=== PATIENT | female | born 1995 | race Two or more races ===

== ENCOUNTER 2024-03-01 11:53 | Inpatient (IN) ==
[2024-03-01] MEDS ORDERED: Nicotine GUM 4MG FRUIT FLAVOR PO PRN (16:49)
[2024-03-01 19:13] LABS: ABS Eosinophils 0.1 10^3/uL (0.0-0.5); ABS Lymphocytes 2.4 10^3/uL (1.0-4.8); ABS Monocytes 0.5 10^3/uL (0.0-0.9); ABS Neutrophils 3.3 10^3/uL (1.5-7.6); Eosinophil % 1.2 %; Hematocrit 39.5 % (35-45); Hemoglobin 13.7 g/dL (11.5-14.3); Lymphocyte % 38.1 %; Mean Corpuscular Hemoglobin 31.1 pg (27-33); Mean Corpuscular Hgb Conc 34.6 g/dL (31-36); Mean Corpuscular Volume 89.9 fL (80-97); Mean Platelet Volume 7.3 fL (7.5-11.2); Platelet Count 254 10^3/uL (150-450); Red Blood Count 4.39 10^6/uL (3.63-4.92); Red Cell Distribution Width 13.7 % (12-17); White Blood Count 6.3 10^3/uL (3.8-11.8)
[2024-03-01 20:11] LABS: Albumin 4.6 g/dL (3.2-5.2); Albumin/Globulin Ratio 1.5 (1-3); Calcium 9.7 mg/dL (8.6-10.3); Creatinine, Serum 0.9 mg/dL (0.51-0.95); Globulin 3.1 g/dL (2-4); Potassium 3.7 mmol/L (3.5-5.0); Total Bilirubin 0.5 mg/dL (0.2-1.0); Total Protein 7.7 g/dL (6.4-8.9); eGFR CKD-EPI 89.9 (>60)
[2024-03-01 20:24] LABS: TSH Ultra Thyroid Stim Horm 1.69 mcIU/mL (0.34-5.60)
[2024-03-02 08:32] LABS: HDL Cholesterol 65.4 mg/dL
[2024-03-02] MEDS: Nicotine PATCH 14 MG/24 HR PATCH TRANSDERM SCH (13:42)
[2024-03-08 08:25] VITALS: BP 109/62
[2024-03-08] MEDS: Al Hydrox/Mg Hydrox/Simet LIQ 30 ML UDC PO PRN (09:15)
== END 2024-03-08 15:02 | disposition home or self-care (01) | DRG 755 ==
LOC: ED 11:53 → EDHOLD 15:09 → BSU 16:23
PROVIDERS: ADMIT Psychiatry & Neurology Psychiatry; ATTEND Student in an Organized Health Care Education/Training Program